=== PATIENT | female | born 1985 | race Caucasian/White ===

== ENCOUNTER 2018-09-03 08:28 | Outpatient (CLI) | payer BC ==
[2018-09-03] MEDS ORDERED: IOHEXOL 50 ML IV ONE (08:56)
== END 2018-09-03 21:11 | disposition home or self-care (01) ==
LOC: SRD 08:28
PROVIDERS: ATTEND Specialist
DX: N92.6 Irregular menstruation, unspecified (principal); N97.9 Female infertility, unspecified
CPT/HCPCS: 74740; C1751; Q9967

== ENCOUNTER 2018-12-16 05:55 | Day surgery (SDC) | payer BC ==
[~2018-12-16] VITALS: Ht 162.6 cm; Wt 89.4 kg
[2018-12-16 06:27] LABS: BILIRUBIN,URINE NEGATIVE (NEGATIVE); BLOOD, URINE 1+ (NEGATIVE); CLARITY/URINE SL HAZY (CLEAR); COLOR,URINE YELLOW (YELLOW); GLUCOSE,URINE NEGATIVE (NEGATIVE); KETONES,URINE NEGATIVE (NEGATIVE); LEUKOCYTE ESTERASE ,URINE NEGATIVE (NEGATIVE); NITRITE, URINE NEGATIVE (NEGATIVE); PROTEIN URINE TRACE (NEGATIVE); UROBILINOGEN,URINE 0.2 (0.2-1.0)
[2018-12-16 06:29] LABS: BASOPHILS # (AUTO) 0.1 K/uL (0.0-0.2); BASOPHILS % (AUTO) 0.9 % (0.0-2.0); EOSINOPHILS # (AUTO) 0.3 K/uL (0.0-0.4); EOSINOPHILS % (AUTO) 1.9 % (0.0-4.0); HEMATOCRIT 32.8 % (36-48); HEMOGLOBIN 10.8 g/dL (12.0-16.0); LYMPHOCYTES # (AUTO) 3.3 K/uL (1.0-5.5); LYMPHOCYTES % (AUTO) 24.6 % (20.5-51.5); MEAN CORPUSCULAR HEMOGLOBIN 26 pg (27-31); MEAN CORPUSCULAR HGB CONC 33 % (32-36); MEAN CORPUSCULAR VOLUME 80 fL (79.0-98.0); MONOCYTES # (AUTO) 0.5 K/uL (0.0-1.0); MONOCYTES % (AUTO) 3.9 % (1.7-9.3); NEUTROPHILS # (AUTO) 9.2 K/uL (1.8-7.7); NEUTROPHILS % (AUTO) 68.7 % (40.0-70.0); PLATELET COUNT (AUTO) 308 K/uL (130-430); RED BLOOD CELL COUNT(AUTO) 4.12 MIL/uL (4.2-6.2); RED CELL DISTRIBUTION WIDTH 14.2 % (9.0-15.0); WHITE BLOOD COUNT (AUTO) 13.4 K/uL (4.8-10.8)
[2018-12-16 06:57] LABS: BACTERIA,URINE FEW /HPF (None Seen); WBC,URINE 0-3 /HPF (0-3)
[2018-12-16] MEDS ORDERED: ONDANSETRON HCL 4 MG/2 ML VIAL IVP ONE (07:55)
[2018-12-16] MEDS ORDERED: CLINDAMYCIN PHOSPHATE 900 mg/50mL D5W IV ONE (07:55)
[2018-12-16] MEDS ORDERED: BUPIVACAINE /DEX PF 0.75% SPINAL 2 ML AMP INJ ONE (07:55)
[2018-12-16] MEDS ORDERED: MIDAZOLAM HCL 5 MG/5 ML VIAL IVP ONE (07:55)
[2018-12-16] MEDS ORDERED: WATER FOR IRRIGATION,STERILE 1,000 ML IRRIG.SOLN IR ONE (07:55)
[2018-12-16] MEDS ORDERED: CLINDAMYCIN 900 mg/50mL D5W 50 ML IV ONE (08:00)
[2018-12-16] MEDS ORDERED: TERBUTALINE SULFATE 1 MG/ML VIAL SUBCUT ONE (08:30)
[2018-12-16] MEDS ORDERED: ONDANSETRON HCL 4 MG/2 ML VIAL IVP PRN (08:30)
[2018-12-16] MEDS ORDERED: HYDROcodone/ACETAMIN 5-325 MG TAB (NORCO/ VICODIN) PO PRN (08:30)
[2018-12-16] MEDS ORDERED: LR 1,000 ML IV SCH (09:02)
[2018-12-16 09:15] VITALS: BP_SYST 111
[2018-12-16] MEDS ORDERED: HYDROmorphone 1 MG INJ. 1 MG/ML AMPUL IVP PRN (09:15)
[2018-12-16] MEDS ORDERED: HYDROmorphone 2 MG/ML VIAL IVP PRN ×2 (09:15)
[2018-12-16] MEDS ORDERED: MEPERIDINE HCL/PF 25 MG/ML DISP.SYRIN IVP PRN (09:15)
== END 2018-12-16 15:20 | disposition home or self-care (01) ==
LOC: SDS 05:55 → SMU 05:55 → SPU 12:28 → SDS 15:20
PROVIDERS: ATTEND Specialist
DX: O34.31 Maternal care for cervical incompetence, first trimester (principal); O99.281 Endocrine, nutritional and metabolic diseases complicating pregnancy, first trimester; E03.9 Hypothyroidism, unspecified; O99.211 Obesity complicating pregnancy, first trimester; O99.011 Anemia complicating pregnancy, first trimester; O25.11 Malnutrition in pregnancy, first trimester
CPT/HCPCS: 36415; 59320; 81000; 85025; 87070 ×2; 87186; J2250; J2405; J3490 ×2; J7120

== ENCOUNTER 2019-01-08 13:44 | Emergency (ER) | payer BC ==
[2019-01-08 15:15] LABS: BASOPHILS # (AUTO) 0.1 K/uL (0.0-0.2); BASOPHILS % (AUTO) 0.6 % (0.0-2.0); EOSINOPHILS # (AUTO) 0.2 K/uL (0.0-0.4); EOSINOPHILS % (AUTO) 1.7 % (0.0-4.0); HEMATOCRIT 34.7 % (36-48); HEMOGLOBIN 11.5 g/dL (12.0-16.0); LYMPHOCYTES # (AUTO) 2.6 K/uL (1.0-5.5); LYMPHOCYTES % (AUTO) 20.8 % (20.5-51.5); MEAN CORPUSCULAR HEMOGLOBIN 26 pg (27-31); MEAN CORPUSCULAR HGB CONC 33 % (32-36); MEAN CORPUSCULAR VOLUME 79 fL (79.0-98.0); MONOCYTES # (AUTO) 0.6 K/uL (0.0-1.0); MONOCYTES % (AUTO) 4.4 % (1.7-9.3); NEUTROPHILS # (AUTO) 9.1 K/uL (1.8-7.7); NEUTROPHILS % (AUTO) 72.5 % (40.0-70.0); PLATELET COUNT (AUTO) 332 K/uL (130-430); RED CELL DISTRIBUTION WIDTH 14.1 % (9.0-15.0); WHITE BLOOD COUNT (AUTO) 12.6 K/uL (4.8-10.8)
[2019-01-08] MEDS ORDERED: NACL 0.9% 1,000 ML IV ONE (15:15)
[2019-01-08] MEDS ORDERED: MORPHINE 4 MG/ML INJ. SYRINGE IVP ONE (15:15)
[2019-01-08 15:19] LABS: CALCIUM 9.8 mg/dL (8.4-11.0); CREATININE 0.45 mg/dL (0.55-1.30); POTASSIUM 3.7 mmol/L (3.5-5.1)
[2019-01-08 15:23] LABS: ALBUMIN 3.1 g/dL (3.4-4.8); TOTAL BILIRUBIN 0.2 mg/dL (0.0-1.0)
[2019-01-08 16:11] LABS: BILIRUBIN,URINE NEGATIVE (NEGATIVE); BLOOD, URINE NEGATIVE (NEGATIVE); CLARITY/URINE CLEAR (CLEAR); COLOR,URINE YELLOW (YELLOW); GLUCOSE,URINE NEGATIVE (NEGATIVE); KETONES,URINE NEGATIVE (NEGATIVE); LEUKOCYTE ESTERASE ,URINE TRACE (NEGATIVE); NITRITE, URINE NEGATIVE (NEGATIVE); PROTEIN URINE NEGATIVE (NEGATIVE); UROBILINOGEN,URINE 0.2 (0.2-1.0)
[2019-01-08 16:19] LABS: BACTERIA,URINE FEW /HPF (None Seen); MUCUS,URINE None Seen /LPF (None Seen); RBC,URINE NONE SEEN /HPF (0-3)
[2019-01-08] MEDS ORDERED: MORPHINE 2 MG/ML INJ. SYRINGE IVP ONE ×2 (16:45→18:00)
[2019-01-08] MEDS ORDERED: ACETAMINOPHEN 500 MG TABLET PO ONE (18:00)
[2019-01-08] MEDS ORDERED: NITROFURANTOIN MONOHYD/M-CRYST 100 MG CAPSULE PO ONE (18:00)
[2019-01-08 18:40] VITALS: BP_SYST 124
== END 2019-01-08 18:40 | disposition home or self-care (01) ==
LOC: SED 13:44
DX: O23.42 Unspecified infection of urinary tract in pregnancy, second trimester (principal); O26.892 Other specified pregnancy related conditions, second trimester; R51 Headache; Z88.1 Allergy status to other antibiotic agents; Z3A.15 15 weeks gestation of pregnancy
CPT/HCPCS: 36415; 76805; 80053; 81000; 85025; 96361; 96374; 96376; 99284; J2270 ×2; J7030

== ENCOUNTER 2019-05-15 09:01 | Observation (INO) | payer BC ==
[~2019-05-15] VITALS: Ht 162.6 cm; Wt 94.8 kg
== END 2019-05-15 10:00 | disposition home or self-care (01) ==
LOC: SPU 09:01
PROVIDERS: ADMIT Specialist; ATTEND Specialist
DX: Z34.83 Encounter for supervision of other normal pregnancy, third trimester (principal); Z3A.33 33 weeks gestation of pregnancy
CPT/HCPCS: G0378

== ENCOUNTER 2019-05-22 10:37 | Observation (INO) | payer BC ==
[~2019-05-22] VITALS: Ht 162.6 cm; Wt 94.8 kg
== END 2019-05-22 11:45 | disposition home or self-care (01) ==
LOC: SPU 10:37
PROVIDERS: ADMIT Specialist; ATTEND Specialist
DX: Z34.83 Encounter for supervision of other normal pregnancy, third trimester (principal); Z3A.34 34 weeks gestation of pregnancy
CPT/HCPCS: G0378

== ENCOUNTER 2019-06-09 16:53 | Inpatient (IN) | payer BC ==
[~2019-06-09] VITALS: Ht 162.6 cm; Wt 95.3 kg
[2019-06-09] MEDS ORDERED: OXYTOCIN/0.9 % SODIUM CHLORIDE 1,000 ML IV SCH (17:05)
[2019-06-09] MEDS ORDERED: NALBUPHINE HCL 10 MG/ML AMP IVP PRN (17:15)
[2019-06-09] MEDS ORDERED: AMPICILLIN SODIUM 2 GM in NS 100 ML IV ONE (17:15)
[2019-06-09 17:41] LABS: BASOPHILS % (AUTO) 0.4 % (0.0-2.0); EOSINOPHILS # (AUTO) 0.1 K/uL (0.0-0.4); EOSINOPHILS % (AUTO) 0.9 % (0.0-4.0); HEMATOCRIT 32.5 % (36-48); HEMOGLOBIN 10.8 g/dL (12.0-16.0); LYMPHOCYTES # (AUTO) 1.8 K/uL (1.0-5.5); LYMPHOCYTES % (AUTO) 18.2 % (20.5-51.5); MEAN CORPUSCULAR HEMOGLOBIN 25 pg (27-31); MEAN CORPUSCULAR HGB CONC 33 % (32-36); MEAN CORPUSCULAR VOLUME 76 fL (79.0-98.0); MONOCYTES # (AUTO) 0.5 K/uL (0.0-1.0); MONOCYTES % (AUTO) 4.8 % (1.7-9.3); NEUTROPHILS # (AUTO) 7.7 K/uL (1.8-7.7); NEUTROPHILS % (AUTO) 75.7 % (40.0-70.0); PLATELET COUNT (AUTO) 324 K/uL (130-430); RED BLOOD CELL COUNT(AUTO) 4.27 MIL/uL (4.2-6.2); RED CELL DISTRIBUTION WIDTH 14.5 % (9.0-15.0); WHITE BLOOD COUNT (AUTO) 10.2 K/uL (4.8-10.8)
[2019-06-09] MEDS: LR 1,000 ML IV SCH ×2 (18:00→22:30)
[2019-06-09 20:25] VITALS: BP_SYST 137
[2019-06-09] MEDS ORDERED: ROPIVACAINE HCL/PF 0.2% 200 ML ONE (22:10)
[2019-06-09] MEDS ORDERED: fentaNYL CITRATE/PF 100 MCG/2 ML AMP ONE (22:10)
[2019-06-09] MEDS ORDERED: LR 500 ML IV ONE (22:18)
[2019-06-09] MEDS ORDERED: FENT2mCg/mL-ROPIVA0.2%/NS EPID 200 ML EP SCH (22:30)
[2019-06-09] MEDS: AMPICILLIN SODIUM 1 GM in NS 50 ML IV SCH (23:00)
[2019-06-10] MEDS: AMPICILLIN SODIUM 1 GM in NS 50 ML IV SCH ×2 (03:00→07:00)
[2019-06-10] MEDS: LR 1,000 ML IV SCH (07:40)
[2019-06-10] MEDS ORDERED: ROPIVACAINE HCL/PF 0.2% 100 ML ONE (10:31)
[2019-06-10] MEDS: IBUPROFEN 600 MG TABLET PO SCH ×2 (12:45→18:13)
[2019-06-10] MEDS ORDERED: IBUPROFEN 600 MG TABLET ONE (12:54)
[2019-06-10] MEDS ORDERED: OXYTOCIN/0.9 % SODIUM CHLORIDE 1,000 ML IV ONE (14:16)
[2019-06-10] MEDS ORDERED: ANUSOL 1 EA SUPP.RECT (PREPARATION H) RC PRN (14:30)
[2019-06-10] MEDS ORDERED: HYDROCORTISONE 0.5%, 28.35 GM TOPICAL CREAM TP PRN (14:30)
[2019-06-10] MEDS ORDERED: DERMOPLAST SPRAY TP PRN (14:30)
[2019-06-10] MEDS ORDERED: WITCH HAZEL LEAF 1 MED.PAD MED.PAD TP PRN (14:30)
[2019-06-10] MEDS ORDERED: LANOLIN 7 GM OINT. TP PRN (14:30)
[2019-06-10] MEDS ORDERED: SENNOSIDES/DOCUSATE SODIUM 1 TAB TABLET(SENOKOT-S) PO PRN (14:30)
[2019-06-10] MEDS: DOCUSATE SODIUM 100 MG CAPSULE PO PRN (18:13)
[2019-06-11] MEDS: IBUPROFEN 600 MG TABLET PO SCH ×4 (00:15→17:56)
[2019-06-11 08:14] LABS: BASOPHILS # (AUTO) 0.1 K/uL (0.0-0.2); EOSINOPHILS # (AUTO) 0.3 K/uL (0.0-0.4); EOSINOPHILS % (AUTO) 2.5 % (0.0-4.0); HEMATOCRIT 24.1 % (36-48); LYMPHOCYTES # (AUTO) 2.4 K/uL (1.0-5.5); LYMPHOCYTES % (AUTO) 19.6 % (20.5-51.5); MEAN CORPUSCULAR HEMOGLOBIN 26 pg (27-31); MEAN CORPUSCULAR HGB CONC 33 % (32-36); MEAN CORPUSCULAR VOLUME 77 fL (79.0-98.0); MONOCYTES # (AUTO) 0.6 K/uL (0.0-1.0); MONOCYTES % (AUTO) 5.1 % (1.7-9.3); NEUTROPHILS # (AUTO) 8.8 K/uL (1.8-7.7); NEUTROPHILS % (AUTO) 71.8 % (40.0-70.0); PLATELET COUNT (AUTO) 271 K/uL (130-430); RED BLOOD CELL COUNT(AUTO) 3.13 MIL/uL (4.2-6.2); RED CELL DISTRIBUTION WIDTH 15.1 % (9.0-15.0); WHITE BLOOD COUNT (AUTO) 12.3 K/uL (4.8-10.8)
[2019-06-11] MEDS: DOCUSATE SODIUM 100 MG CAPSULE PO PRN (17:56)
[2019-06-12] MEDS: IBUPROFEN 600 MG TABLET PO SCH ×2 (00:05→06:22)
== END 2019-06-12 11:50 | disposition home or self-care (01) | DRG 807 ==
LOC: SPU 16:53
PROVIDERS: ADMIT Specialist; ATTEND Specialist
PROC: 10E0XZZ Delivery of Products of Conception, External Approach (ICD-10-PCS; principal; 2019-06-10)
PROC: 3E0R3BZ Introduction of Anesthetic Agent into Spinal Canal, Percutaneous Approach (ICD-10-PCS; 2019-06-10)
PROC: 00HU33Z Insertion of Infusion Device into Spinal Canal, Percutaneous Approach (ICD-10-PCS; 2019-06-10)
DX: O24.420 Gestational diabetes mellitus in childbirth, diet controlled (principal); Z37.0 Single live birth; O13.4 Gestational [pregnancy-induced] hypertension without significant proteinuria, complicating childbirth; O69.81X0 Labor and delivery complicated by cord around neck, without compression, not applicable or unspecified; Z3A.37 37 weeks gestation of pregnancy
CPT/HCPCS: 36415; 81002-TC; 85018-TC; 85025; 86592; 86870; 86886; 86900; 86901; 94760; J0290; J2590; J2795; J3010; J7120

== ENCOUNTER 2020-10-26 05:50 | Day surgery (SDC) | payer BC, SELFPAY ==
[2020-10-17 13:03] LABS: BASOPHILS # (AUTO) 0.1 K/uL (0.0-0.2); BASOPHILS % (AUTO) 0.5 % (0.0-2.0); EOSINOPHILS % (AUTO) 0.3 % (0.0-4.0); HEMATOCRIT 34.8 % (36-48); HEMOGLOBIN 11.5 g/dL (12.0-16.0); LYMPHOCYTES # (AUTO) 1.6 K/uL (1.0-5.5); LYMPHOCYTES % (AUTO) 11.6 % (20.5-51.5); MEAN CORPUSCULAR HEMOGLOBIN 26 pg (27-31); MEAN CORPUSCULAR HGB CONC 33 % (32-36); MEAN CORPUSCULAR VOLUME 78 fL (79.0-98.0); MONOCYTES # (AUTO) 0.5 K/uL (0.0-1.0); MONOCYTES % (AUTO) 3.5 % (1.7-9.3); NEUTROPHILS # (AUTO) 11.8 K/uL (1.8-7.7); NEUTROPHILS % (AUTO) 84.1 % (40.0-70.0); PLATELET COUNT (AUTO) 339 K/uL (130-430); RED BLOOD CELL COUNT(AUTO) 4.46 MIL/uL (4.2-6.2); WHITE BLOOD COUNT (AUTO) 14.1 K/uL (4.8-10.8)
[2020-10-17 13:47] LABS: BILIRUBIN,URINE NEGATIVE (NEGATIVE); COLOR,URINE YELLOW (YELLOW); GLUCOSE,URINE NEGATIVE (NEGATIVE); KETONES,URINE NEGATIVE (NEGATIVE); LEUKOCYTE ESTERASE ,URINE NEGATIVE (NEGATIVE); NITRITE, URINE NEGATIVE (NEGATIVE); PROTEIN URINE NEGATIVE (NEGATIVE); UROBILINOGEN,URINE 0.2 (0.2-1.0)
[2020-10-17 13:51] LABS: BLOOD, URINE TRACE (NEGATIVE); CLARITY/URINE HAZY (CLEAR)
[2020-10-17 14:00] LABS: BACTERIA,URINE FEW /HPF (None Seen); MUCUS,URINE 1+ /LPF (None Seen); RBC,URINE 0-3 /HPF (0-3); URINE AMORPHOUS PHOSPHATES 1+ /HPF (None Seen); WBC,URINE NONE SEEN /HPF (0-3)
[~2020-10-26] VITALS: Ht 162.6 cm; Wt 90.7 kg
[2020-10-26] MEDS ORDERED: ePHEDrine sulfate 50 MG/ML VIAL IM ONE (07:44)
[2020-10-26] MEDS ORDERED: WATER FOR IRRIGATION,STERILE 1,000 ML IRRIG.SOLN IR ONE (07:44)
[2020-10-26] MEDS ORDERED: BUPIVACAINE /PF 0.75% 10 ML VIAL INJ ONE (07:44)
[2020-10-26] MEDS ORDERED: CLINDAMYCIN PHOSPHATE 900 mg/50mL D5W IV ONE (07:44)
[2020-10-26] MEDS ORDERED: LR 1,000 ML IV.SOLN IV ONE (07:44)
[2020-10-26] MEDS ORDERED: TERBUTALINE SULFATE 1 MG/ML VIAL SUBCUT PRN (08:30)
[2020-10-26] MEDS ORDERED: MORPHINE SULFATE 10 MG/ML VIAL IM PRN (08:30)
[2020-10-26 08:36] VITALS: BP_SYST 129
== END 2020-10-26 20:00 | disposition home or self-care (01) ==
LOC: SMU 05:50 → SDS 05:50 → SPU 09:27 → SDS 20:00
PROVIDERS: ATTEND Specialist
DX: O34.31 Maternal care for cervical incompetence, first trimester (principal); N96 Recurrent pregnancy loss; E66.01 Morbid (severe) obesity due to excess calories; Z3A.12 12 weeks gestation of pregnancy; Z79.899 Other long term (current) drug therapy
CPT/HCPCS: 36415 ×2; 59320; 81000; 84703; 85025; 87070 ×2; 87086; 87426; J3490 ×2; J7120; 87075-TC

== ENCOUNTER 2021-01-12 10:23 | Observation (INO) | payer BC, SELFPAY ==
[~2021-01-12] VITALS: Ht 162.6 cm; Wt 96.2 kg
== END 2021-01-12 12:30 | disposition home or self-care (01) ==
LOC: SPU 10:23
PROVIDERS: ADMIT Specialist; ATTEND Specialist
DX: O36.8120 Decreased fetal movements, second trimester, not applicable or unspecified (principal); Z3A.23 23 weeks gestation of pregnancy
CPT/HCPCS: G0378

== ENCOUNTER 2021-02-07 11:49 | Observation (INO) | payer BC, SELFPAY ==
[2021-02-07 13:00] LABS: BILIRUBIN,URINE NEGATIVE (NEGATIVE); BLOOD, URINE 1+ (NEGATIVE); COLOR,URINE YELLOW (YELLOW); GLUCOSE,URINE NEGATIVE (NEGATIVE); KETONES,URINE NEGATIVE (NEGATIVE); LEUKOCYTE ESTERASE ,URINE NEGATIVE (NEGATIVE); NITRITE, URINE NEGATIVE (NEGATIVE); PH,URINE 6.5 (5.0-8.0); PROTEIN URINE NEGATIVE (NEGATIVE); UROBILINOGEN,URINE 0.2 (0.2-1.0)
[2021-02-07 13:10] LABS: CLARITY/URINE SLIGHTLY HAZY (CLEAR)
[2021-02-07 13:11] LABS: WBC,URINE 0-3 /HPF (0-3)
[2021-02-07 13:12] LABS: BACTERIA,URINE FEW /HPF (None Seen); MUCUS,URINE 1+ /LPF (None Seen)
== END 2021-02-07 14:40 | disposition home or self-care (01) ==
LOC: SPU 11:49
PROVIDERS: ADMIT Specialist; ATTEND Specialist
DX: O42.912 Preterm premature rupture of membranes, unspecified as to length of time between rupture and onset of labor, second trimester (principal); Z20.822 Contact with and (suspected) exposure to COVID-19; Z3A.27 27 weeks gestation of pregnancy; Z91.040 Latex allergy status
CPT/HCPCS: 36415; 76815; 81000; 87426; G0378; 81002

== ENCOUNTER 2021-03-17 06:40 | Observation (INO) | payer BC | END 2021-03-17 20:22 | disposition home or self-care (01) | LOC: UNDOADMOB 06:40 → SPU 06:40 → UNDODISOB 20:22 | PROVIDERS: ADMIT Specialist; ATTEND Specialist | DX: O62.9 Abnormality of forces of labor, unspecified (principal); Z3A.33 33 weeks gestation of pregnancy; Z91.040 Latex allergy status | CPT/HCPCS: 82962; G0378 ==

== ENCOUNTER 2021-04-09 07:00 | Inpatient (IN) | payer BC, SELFPAY ==
[~2021-04-09] VITALS: Ht 162.6 cm; Wt 93.4 kg
[2021-04-09] MEDS ORDERED: TERBUTALINE SULFATE 1 MG/ML VIAL SUBCUT ONE (08:45)
[2021-04-09] MEDS ORDERED: NALBUPHINE HCL 10 MG/ML AMP IVP PRN (08:45)
[2021-04-09] MEDS ORDERED: AMPICILLIN SODIUM 1 GM in NS 50 ML IV SCH (08:45)
[2021-04-09] MEDS ORDERED: AMPICILLIN SODIUM 2 GM in NS 100 ML IV ONE (08:45)
[2021-04-09] MEDS ORDERED: OXYTOCIN/0.9 % SODIUM CHLORIDE 1,000 ML IV SCH (08:45)
[2021-04-09] MEDS ORDERED: LR 1,000 ML IV ONE (08:45)
[2021-04-09 09:07] LABS: BASOPHILS % (AUTO) 0.5 % (0.0-2.0); EOSINOPHILS % (AUTO) 0.3 % (0.0-4.0); HEMATOCRIT 30.5 % (36-48); HEMOGLOBIN 10.2 g/dL (12.0-16.0); LYMPHOCYTES # (AUTO) 1.5 K/uL (1.0-5.5); LYMPHOCYTES % (AUTO) 15.7 % (20.5-51.5); MEAN CORPUSCULAR HEMOGLOBIN 25 pg (27-31); MEAN CORPUSCULAR HGB CONC 34 % (32-36); MEAN CORPUSCULAR VOLUME 75 fL (79.0-98.0); MONOCYTES # (AUTO) 0.5 K/uL (0.0-1.0); MONOCYTES % (AUTO) 5.7 % (1.7-9.3); NEUTROPHILS # (AUTO) 7.3 K/uL (1.8-7.7); NEUTROPHILS % (AUTO) 77.8 % (40.0-70.0); PLATELET COUNT (AUTO) 327 K/uL (130-430); RED BLOOD CELL COUNT(AUTO) 4.09 MIL/uL (4.2-6.2); RED CELL DISTRIBUTION WIDTH 14.5 % (9.0-15.0); WHITE BLOOD COUNT (AUTO) 9.4 K/uL (4.8-10.8)
[2021-04-09] MEDS: LR 1,000 ML IV SCH ×2 (10:09→21:01)
[2021-04-09] MEDS: CLINDAMYCIN 900 mg/50mL D5W 50 ML IV SCH ×2 (10:09→19:18)
[2021-04-09 14:44] VITALS: BP_SYST 130
[2021-04-09] MEDS ORDERED: fentaNYL CITRATE/PF 100 MCG/2 ML AMP ONE (15:58)
[2021-04-09] MEDS ORDERED: ROPIVACAINE HCL/PF 0.2% 200 ML ONE (15:58)
[2021-04-09] MEDS ORDERED: FENT2mCg/mL-ROPIVA0.2%/NS EPID 200 ML EP SCH (16:45)
[2021-04-09] MEDS ORDERED: LR 500 ML IV ONE (16:45)
[2021-04-10] MEDS ORDERED: OXYTOCIN/0.9 % SODIUM CHLORIDE 1,000 ML IV ONE (01:30)
[2021-04-10] MEDS ORDERED: RHO(D) IMMUNE GLOBULIN/MALTOSE 1500 UNITS/1.3 ML (WINHRO) IM PRN (01:30)
[2021-04-10] MEDS ORDERED: NALOXONE HCL 0.4 MG/ML AMP (NARCAN) IVP PRN (01:30)
[2021-04-10] MEDS ORDERED: WITCH HAZEL LEAF 1 MED.PAD MED.PAD TP PRN (01:30)
[2021-04-10] MEDS ORDERED: HYDROcodone/ACETAMIN 5-325 MG TAB (NORCO/ VICODIN) PO PRN (01:30)
[2021-04-10] MEDS ORDERED: DERMOPLAST SPRAY TP PRN (01:30)
[2021-04-10] MEDS ORDERED: ANUSOL 1 EA SUPP.RECT (PREPARATION H) RC PRN (01:30)
[2021-04-10] MEDS ORDERED: OXYCODONE/ACETAMINOPHEN 5-325 TABLET PO PRN ×2 (01:30)
[2021-04-10] MEDS ORDERED: METHYLERGONOVINE MALEATE 0.2 MG TABLET PO PRN (01:30)
[2021-04-10] MEDS ORDERED: DIPH-TET-PERTUS Vaccine 0.5 ML VIAL (ADACEL) I.M. PRN (01:30)
[2021-04-10] MEDS ORDERED: OXYTOCIN/0.9 % SODIUM CHLORIDE 1,000 ML IV SCH (01:30)
[2021-04-10] MEDS ORDERED: MEASLES,MUMPS&RUBELLA VACC/PF 12500 UNIT/0.5 ML VIAL SUBQ PRN (01:30)
[2021-04-10] MEDS ORDERED: LANOLIN 7 GM OINT. TP PRN (01:30)
[2021-04-10] MEDS ORDERED: HYDROCORTISONE 0.5% CREAM 28.4 GM CREAM.GM. TP PRN (01:30)
[2021-04-10] MEDS: IBUPROFEN 600 MG TABLET PO SCH ×3 (05:40→17:44)
[2021-04-10] MEDS: DOCUSATE SODIUM 100 MG CAPSULE PO SCH (09:03)
[2021-04-10] MEDS ORDERED: TEMAZEPAM 15 MG CAPSULE PO PRN (21:00)
[2021-04-10] MEDS ORDERED: SENNOSIDES/DOCUSATE SODIUM 1 TAB TABLET(SENOKOT-S) PO SCH (21:00)
[2021-04-11] MEDS: IBUPROFEN 600 MG TABLET PO SCH ×2 (00:08→05:55)
[2021-04-11 07:27] LABS: BASOPHILS # (AUTO) 0.1 K/uL (0.0-0.2); EOSINOPHILS # (AUTO) 0.2 K/uL (0.0-0.4); EOSINOPHILS % (AUTO) 2.4 % (0.0-4.0); HEMATOCRIT 26.5 % (36-48); HEMOGLOBIN 8.7 g/dL (12.0-16.0); LYMPHOCYTES # (AUTO) 2.7 K/uL (1.0-5.5); LYMPHOCYTES % (AUTO) 32.6 % (20.5-51.5); MEAN CORPUSCULAR HEMOGLOBIN 25 pg (27-31); MEAN CORPUSCULAR HGB CONC 33 % (32-36); MEAN CORPUSCULAR VOLUME 75 fL (79.0-98.0); MONOCYTES # (AUTO) 0.4 K/uL (0.0-1.0); MONOCYTES % (AUTO) 5.3 % (1.7-9.3); NEUTROPHILS # (AUTO) 4.8 K/uL (1.8-7.7); NEUTROPHILS % (AUTO) 58.7 % (40.0-70.0); PLATELET COUNT (AUTO) 294 K/uL (130-430); RED BLOOD CELL COUNT(AUTO) 3.51 MIL/uL (4.2-6.2); RED CELL DISTRIBUTION WIDTH 15.1 % (9.0-15.0); WHITE BLOOD COUNT (AUTO) 8.1 K/uL (4.8-10.8)
[2021-04-11] MEDS: DOCUSATE SODIUM 100 MG CAPSULE PO SCH (09:23)
[2021-04-12 19:06] LABS: FTA-Ab (T PALLIDUM) Non Reactive (Non Reactive)
== END 2021-04-11 10:20 | disposition home or self-care (01) | DRG 807 ==
LOC: SPU 07:00
PROVIDERS: ADMIT Specialist; ATTEND Specialist
PROC: 10E0XZZ Delivery of Products of Conception, External Approach (ICD-10-PCS; principal; 2021-04-10)
PROC: 3E0R3BZ Introduction of Anesthetic Agent into Spinal Canal, Percutaneous Approach (ICD-10-PCS; 2021-04-10)
PROC: 00HU33Z Insertion of Infusion Device into Spinal Canal, Percutaneous Approach (ICD-10-PCS; 2021-04-10)
DX: O60.14X0 Preterm labor third trimester with preterm delivery third trimester, not applicable or unspecified (principal); Z37.0 Single live birth; O42.013 Preterm premature rupture of membranes, onset of labor within 24 hours of rupture, third trimester; Z20.822 Contact with and (suspected) exposure to COVID-19; O69.81X0 Labor and delivery complicated by cord around neck, without compression, not applicable or unspecified; Z3A.36 36 weeks gestation of pregnancy
CPT/HCPCS: 36415; 81002; 85025; 86592; 86780; 86870; 86886; 86900; 86901; 94760; J2590; J3010; J3490

== ENCOUNTER 2021-04-16 00:23 | Emergency (ER) | payer BC, SELFPAY ==
--- NOTE | 2021-04-16 02:00 | NUR ---
Patient left without being seen.
== END 2021-04-16 02:00 | disposition left against medical advice (07) ==
LOC: SED 00:23
DX: R51.9 Headache, unspecified (principal); Z53.21 Procedure and treatment not carried out due to patient leaving prior to being seen by health care provider

== ENCOUNTER 2022-06-06 07:24 | Emergency (ER) | payer BC ==
[~2022-06-06] VITALS: Ht 160 cm; Wt 84.8 kg
[2022-06-06 07:37] VITALS: BP_SYST 126
--- NOTE | 2022-06-06 07:41 | NUR ---
DR SHAFFER AT BEDSIDE FOR EVALUATION. PT C/O HEADACHE WHICH STARTED LAST NIGHT AT 1900. PT DESCRIBES IT A MIGRAINE AND STATES THAT SHE ONLY GETS MIGRAINE WHEN . PT STATES SHE IS CURRENTLY 16 WEEKS . PT DENIES ABDOMINAL PAIN OR VAGINAL BLEEDING. PT STATES THAT OBGYN DR DENSON IS AWARE OF MIGRAINE SITUATION. PT STATES HAS NAUSEA AND DRY HEAVING. PT STATES LEFT FRONTAL MIGRAINE. USUAL MEDICATION OF FATOU PILLS IS INEFFECTIVE AT THIS TIME.
[2022-06-06] MEDS ORDERED: ACETAMINOPHEN 500 MG TABLET PO ONE (07:45)
[2022-06-06] MEDS ORDERED: PROMETHAZINE INJ.Non-Formulary 25 MG/ML AMP IM ONE (07:45)
[2022-06-06] MEDS ORDERED: PHE25 PO (07:50)
--- NOTE | 2022-06-06 07:55 | NUR ---
MEDICATED ORDERED. PT TOLERATED WELL. DR SHAFFER AWARE OF PHENERGAN NOT AVAILABLE. PT MADE COMFORTABLE.
[2022-06-06] MEDS ORDERED: ONDANSETRON 4 MG ODT TAB PO ONE (08:00)
--- NOTE | 2022-06-06 09:18 | NUR ---
DR SHAFFER SPEAKING WITH DR JANIYA BRADSHAW
[2022-06-06] MEDS ORDERED: PROCHLORPERAZINE EDISYLATE 10 MG/2 ML VIAL IM ONE (09:30)
[2022-06-06] MEDS ORDERED: MEPERIDINE 50 MG/ML VIAL IM ONE (09:30)
--- NOTE | 2022-06-06 10:41 | NUR ---
PT RESTING QUIETLY, NO CHANGES
--- NOTE | 2022-06-06 11:19 | NUR ---
Patient given written and verbal discharge instructions and verbalizes understanding. ER MD discussed with patient the results and treatment provided. Patient in stable condition. ID arm band removed. Rx of PHENERGAN given. Patient educated on pain management and to follow up with PMD. Pain Scale 0/10. Opportunity for questions provided and answered. Medication side effect fact sheet provided.
== END 2022-06-06 11:19 | disposition home or self-care (01) ==
LOC: SED 07:24
DX: O26.892 Other specified pregnancy related conditions, second trimester (principal); Z3A.16 16 weeks gestation of pregnancy; Z88.1 Allergy status to other antibiotic agents; Z79.899 Other long term (current) drug therapy
CPT/HCPCS: 99284; 96372; Q0162; J0780; J2175; J2550